=== PATIENT | female | born 1970 | race Asian ===

== ENCOUNTER 2016-10-17 06:53 | Emergency (ER) | payer OTHER ==
[2016-10-17 07:04] VITALS: BP 137/88
[2016-10-17] MEDS ORDERED: PHENAZOPYRIDINE 100 MG TABLET PO STA (07:21)
--- NOTE | 2016-10-17 07:21 | ED Physician Documentation ---
PD HPI FEMALE - Stated complaint Stated Complaint: FEMALE - Chief complaint Chief Complaint: UTI - History obtained from History obtained from: Patient - History of Present Illness Timing - onset: Last night Timing - duration: Days (1) Timing - details: Gradual onset, Still present Associated symptoms: Dysuria, Urinary frequency, Hematuria. No: Vaginal discharge, Genital sore/lesion Contributing factors: No: , Exposed to STD Similar symptoms before: Diagnosis (UTI in past) Recently seen: Not recently seen Review of Systems Constitutional: reports: Chills. denies: Fever GI: reports: Abdominal Pain (suprapubic). denies: Nausea, Vomiting, Diarrhea Skin: denies: Rash, Lesions Musculoskeletal: denies: Back pain PD PAST MEDICAL HISTORY - Past Medical History Cardiovascular: None Respiratory: None Neuro: None Endocrine/Autoimmune: None GI: None : None HEENT: Other Psych: None Musculoskeletal: None Derm: None Other Past Medical History: The patient was admitted for sepsis July 2015. - Past Surgical History Past Surgical History: Yes Neuro: Other - Present Medications Home Medications: Ambulatory Orders Medication Instructions Recorded Confirmed Cholecalciferol (Vitamin D3) 5,000 units PO DAILY 07/20/15 10/17/16 [Vitamin D] Gabapentin 300 mg PO TID 07/20/15 10/17/16 Fluticasone [Flonase] 1 sprays ADINA BID 07/21/15 10/17/16 Phenazopyridine [Pyridium] 200 mg PO TID PRN #15 tablet 10/17/16 Sulfamethox/Trimeth 800/160 1 each PO BID #14 tablet 10/17/16 [Bactrim Ds 800/160] - Allergies Allergies/Adverse Reactions: Allergies Allergy/AdvReac Type Severity Reaction Status Date / Time No Known Drug Allergies Allergy Verified 07/20/15 23:44 - Social History Does the pt smoke?: No Smoking Status: Never smoker Does the pt drink ETOH?: No Does the pt have substance abuse?: No - Immunizations Immunizations are current?: No PD ED PE NORMAL - Vitals Vital signs reviewed: Yes - General General: Alert and oriented X 3, No acute distress, Well developed/nourished - Abdomen Abdomen: Normal bowel sounds, Soft, Non distended, No organomegaly, Other (mild tender suprapubic area without guarding. ) - Female Female : Deferred - Rectal Rectal: Deferred - Back Back: No CVA TTP - Derm Derm: Normal color, Warm and dry Results - Vitals Vitals: Vital Signs - 24 hr 10/17/16 06:58 Temperature 36.6 C Heart Rate 88 Respiratory 14 Rate Blood Pressure 137/88 H O2 Saturation 100 Oxygen O2 Source Room air - Labs Labs: Laboratory Tests 10/17/16 10/17/16 07:11 07:11 Urine Color RED/BLOODY Urine Clarity BLOODY Urine pH 6.0 Ur Specific [place] <=1.005 <1.005 Urine Protein 100 H Urine Glucose (UA) NEGATIVE Urine Ketones NEGATIVE Urine Occult Blood LARGE H Urine Nitrite NEGATIVE Urine Bilirubin NEGATIVE Urine Urobilinogen 0.2 (NORMAL) Ur Leukocyte Esterase MODERATE H Urine RBC TNTC H Urine WBC 6-10 H Ur Squamous Epith Cells NONE SEEN Urine Bacteria None Seen Ur Microscopic Review INDICATED Urine Culture Comments INDICATED Urine HCG, Qual NEGATIVE PD MEDICAL DECISION MAKING - ED course Complexity details: reviewed results (c/w early UTI), considered differential, d /w patient Departure - Departure Disposition: Home, Self Care Clinical Impression: Urinary tract infection Qualifiers: Urinary tract infection type: acute cystitis Hematuria presence: with hematuria Qualified Code(s): N30.01 - Acute cystitis with hematuria Condition: Stable Record reviewed to determine appropriate education?: Yes Instructions: ED UTI Cystitis Female Follow-Up: Shellie Kat PA-C [Primary Care Provider] - Prescriptions: Sulfamethox/Trimeth 800/160 [Bactrim Ds 800/160] 1 each PO BID #14 tablet Phenazopyridine [Pyridium] 200 mg PO TID PRN #15 tablet PRN Reason: Pain Comments: Drink lots of fluids. The urine test does show bladder infection and some bleeding with that is fairly common. Phenazopyridine three times daily to help with the discomfort. Tylenol or Ibuprofen as needed for pains. Bactrim antibiotic twice daily as directed for the infection. Recheck if not improved over the next couple of days. Forms: Activity restrictions Discharge Date/Time: 10/17/16 08:05
[2016-10-17] MEDS ORDERED: PHENAZOPYRIDINE 100 MG TABLET PO ONE (07:31)
[2016-10-17 07:45] LABS: BILIRUBIN,URINE NEGATIVE (NEGATIVE)
[2016-10-17 07:47] LABS: UA w/ MICROSCOPIC CHARGE YES
[2016-10-17 07:48] LABS: HCG UR QUAL NEGATIVE
[2016-10-17] MEDS ORDERED: SULFAMETH/TRIMETH DS 800/160 MG TABLET PO STA (07:58)
[2016-10-17 08:00] LABS: UR CULTURE IF IND INDICATED
[2016-10-17] MEDS ORDERED: SULFAMETH/TRIMETH DS 800/160 MG TABLET PO ONE (08:01)
== END 2016-10-17 08:05 | disposition home or self-care (01) ==
LOC: ED 06:53
DX: N30.01 Acute cystitis with hematuria (principal)
CPT/HCPCS: 81001; 81025; 87086; 99283; A9270; 81003

== ENCOUNTER 2017-04-16 08:23 | Outpatient (CLI) | payer OTHER ==
[2017-04-16 09:16] LABS: BASOPHILS % (AUTO) 0.4 %; EOSINOPHILS # (AUTO) 0.5 10^3/uL (0.0-0.7); EOSINOPHILS % (AUTO) 8.7 %; HCT - HEMATOCRIT 45.3 % (37.0-47.0); HGB - HEMOGLOBIN 15.4 g/dL (12.0-16.0); LYMPHOCYTES # (AUTO) 1.8 10^3/uL (1.5-3.5); LYMPHOCYTES % (AUTO) 30.8 %; MEAN CORPUSCULAR HEMOGLOBIN 30.1 pg (27.0-31.0); MEAN CORPUSCULAR VOLUME 88.6 fL (81.0-99.0); MEAN PLATELET VOLUME 7.9 fL (7.9-10.8); MONOCYTES # (AUTO) 0.5 10^3/uL (0.0-1.0); MONOCYTES % (AUTO) 8.2 %; NEUTROPHILS # (AUTO) 3.1 10^3/uL (1.5-6.6); NEUTROPHILS % (AUTO) 51.9 %; NUCLEATED RED BLOOD CELLS AUTO 0.1 /100WBC; RED BLOOD COUNT 5.12 10^6/uL (4.20-5.40); RED CELL DISTRIBUTION WIDTH 13.2 % (12.0-15.0); UNCORRECTED WHITE BLOOD COUNT 5.9 x10^3/uL; WHITE BLOOD COUNT 5.9 x10^3/uL (4.8-10.8)
[2017-04-16 09:30] LABS: ALBUMIN/GLOBULIN RATIO 1.2 (1.0-2.2); BILIRUBIN,TOTAL 0.9 mg/dL (0.2-1.0); BUN - BLOOD UREA NITROGEN 18 mg/dL (6-20); CALCIUM 9.3 mg/dL (8.5-10.3); CARBON DIOXIDE - CO2 28 mmol/L (21-32); CHLORIDE 104 mmol/L (101-111); CHOL/HDL RATIO 4.3 (<4.4); CHOLESTEROL 194 mg/dL; GFR - MDRD 60 (>89); GLUCOSE 108 mg/dL (70-100); HDL CHOLESTEROL 45 mg/dL; LDL/HDL RATIO 2.5 (<4.4); POTASSIUM 4.2 mmol/L (3.5-5.0); SODIUM 141 mmol/L (135-145); TOTAL PROTEIN 7.4 g/dL (6.7-8.2); TRIGLYCERIDES 174 mg/dL; VLDL CHOLESTEROL 35 mg/dL
== END 2017-04-16 08:24 | disposition home or self-care (01) ==
LOC: LAB 08:23
PROVIDERS: ATTEND Family Medicine
DX: Z00.00 Encounter for general adult medical examination without abnormal findings (principal)
CPT/HCPCS: 80053; 80061; 84443; 85025

== ENCOUNTER 2017-12-30 10:06 | Outpatient (CLI) | payer OTHER ==
[2017-12-30 12:46] LABS: BASOPHILS % (AUTO) 0.5 %; EOSINOPHILS # (AUTO) 0.8 10^3/uL (0.0-0.7); EOSINOPHILS % (AUTO) 9.2 %; HGB - HEMOGLOBIN 14.5 g/dL (12.0-16.0); LYMPHOCYTES # (AUTO) 1.9 10^3/uL (1.5-3.5); LYMPHOCYTES % (AUTO) 21.8 %; MEAN CORPUSCULAR HEMOGLOBIN 30.2 pg (27.0-31.0); MEAN CORPUSCULAR HGB CONC 33.5 g/dL (32.0-36.0); MEAN PLATELET VOLUME 8.2 fL (7.9-10.8); MONOCYTES # (AUTO) 1.1 10^3/uL (0.0-1.0); NEUTROPHILS # (AUTO) 4.8 10^3/uL (1.5-6.6); NEUTROPHILS % (AUTO) 55.5 %; PLT - PLATELET COUNT 238 10^3/uL (130-450); RED CELL DISTRIBUTION WIDTH 12.9 % (12.0-15.0); WHITE BLOOD COUNT 8.6 x10^3/uL (4.8-10.8)
[2017-12-30 13:13] LABS: ALBUMIN 3.7 g/dL (3.2-5.5); BILIRUBIN,TOTAL 0.6 mg/dL (0.2-1.0); CALCIUM 9.3 mg/dL (8.5-10.3); CREATININE 1.1 mg/dL (0.4-1.0); TOTAL PROTEIN 7.5 g/dL (6.7-8.2)
== END 2017-12-30 10:07 | disposition home or self-care (01) ==
LOC: LAB.WCP 10:06
PROVIDERS: ATTEND Family Medicine
DX: K52.9 Noninfective gastroenteritis and colitis, unspecified (principal)
CPT/HCPCS: 36415; 80053; 82150; 83690; 85025

== ENCOUNTER 2019-02-18 08:24 | Outpatient (CLI) | payer OTHER ==
--- NOTE | 2019-02-20 14:41 | Ultrasound Report ---
Reason: SUPRACLAVICULAR LYMPHADENOPATHY Procedure Date: 02/18/2019 Accession Number: [id number] / [id number] Procedure: US - Head or Neck Soft Tissue CPT Code: FULL RESULT: EXAM: NECK ULTRASOUND EXAM DATE: 02/18/2019 08:58 AM. CLINICAL HISTORY: Left SUPRACLAVICULAR LYMPHADENOPATHY. COMPARISON: None. TECHNIQUE: Real-time sonographic imaging was performed by the beam sealer utilizing color-flow. Multiple customer response representative static images were saved for review. FINDINGS: Left supraclavicular region scanned. Images labeled incorrectly labeled right, this was verified by technologist. In the palpable region there is a 3 x 3 x 3 mm fluid collection. IMPRESSION: 3 mm fluid collection at the left supraclavicular palpable region RADIA
== END 2019-02-18 08:25 | disposition home or self-care (01) ==
LOC: DI 08:24
PROVIDERS: ATTEND Family Medicine
DX: R59.0 Localized enlarged lymph nodes (principal)
CPT/HCPCS: 76536

== ENCOUNTER 2019-12-07 09:14 | Outpatient (CLI) | payer OTHER | END 2019-12-07 09:15 | disposition home or self-care (01) | LOC: COV 09:14 | PROVIDERS: ATTEND Family Medicine | DX: Z20.828 Contact with and (suspected) exposure to other viral communicable diseases (principal) ==

== ENCOUNTER 2020-08-25 16:49 | Outpatient (CLI) | payer OTHER ==
[2020-08-25 21:15] LABS: BASOPHILS % (AUTO) 0.6 %; EOSINOPHILS # (AUTO) 0.2 10^3/uL (0.0-0.7); EOSINOPHILS % (AUTO) 3.5 %; HCT - HEMATOCRIT 46.8 % (37.0-47.0); HGB - HEMOGLOBIN 14.8 g/dL (12.0-16.0); LYMPHOCYTES # (AUTO) 2.5 10^3/uL (1.5-3.5); LYMPHOCYTES % (AUTO) 36.4 %; MEAN CORPUSCULAR HEMOGLOBIN 29.1 pg (27.0-31.0); MEAN CORPUSCULAR HGB CONC 31.6 g/dL (32.0-36.0); MEAN CORPUSCULAR VOLUME 92.1 fL (81.0-99.0); MEAN PLATELET VOLUME 10.7 fL (7.9-10.8); MONOCYTES # (AUTO) 0.5 10^3/uL (0.0-1.0); MONOCYTES % (AUTO) 7.4 %; NEUTROPHILS # (AUTO) 3.5 10^3/uL (1.5-6.6); PLT - PLATELET COUNT 209 10^3/uL (130-450); RED BLOOD COUNT 5.08 10^6/uL (4.20-5.40); RED CELL DISTRIBUTION WIDTH 12.4 % (12.0-15.0); WHITE BLOOD COUNT 6.8 x10^3/uL (4.8-10.8)
[2020-08-25 21:29] LABS: ALBUMIN 4.1 g/dL (3.2-5.5); ALBUMIN/GLOBULIN RATIO 1.2 (1.0-2.2); ALKALINE PHOSPHATASE 69 IU/L (42-121); ALT ALANINE AMINOTRANSFERASE 21 IU/L (10-60); AST ASPARTATE AMINOTRANSFERASE 22 IU/L (10-42); BILIRUBIN,TOTAL 0.5 mg/dL (0.2-1.0); BUN - BLOOD UREA NITROGEN 25 mg/dL (6-20); CALCIUM 9.9 mg/dL (8.5-10.3); CARBON DIOXIDE - CO2 29 mmol/L (21-32); CHLORIDE 103 mmol/L (101-111); CHOL/HDL RATIO 3.7 (<4.4); CHOLESTEROL 200 mg/dL; CREATININE 1.1 mg/dL (0.4-1.0); GFR - MDRD 53 (>89); GLUCOSE 98 mg/dL (70-100); HDL CHOLESTEROL 54 mg/dL; LDL CHOLESTEROL,CALCULATED 119 mg/dL; LDL/HDL RATIO 2.2 (<4.4); POTASSIUM 3.6 mmol/L (3.5-5.0); SODIUM 140 mmol/L (135-145); TOTAL PROTEIN 7.5 g/dL (6.7-8.2); TRIGLYCERIDES 134 mg/dL; VLDL CHOLESTEROL 27 mg/dL
[2020-08-25 21:40] LABS: THYROID STIMULATING HORMONE 2.5 uIU/mL (0.34-5.60)
== END 2020-08-25 16:50 | disposition home or self-care (01) ==
LOC: LAB.N 16:49
PROVIDERS: ATTEND Family Medicine
DX: Z00.00 Encounter for general adult medical examination without abnormal findings (principal)
CPT/HCPCS: 36415; 80053; 80061; 83721; 84443; 85025

== ENCOUNTER 2020-09-26 07:00 | Outpatient (CLI) | payer OTHER, MEDICAID | END 2020-09-26 23:59 | disposition home or self-care (01) | LOC: LAB.N 07:00 | PROVIDERS: ATTEND Family Medicine | DX: R32 Unspecified urinary incontinence (principal) | CPT/HCPCS: 87086; 87181 ==

== ENCOUNTER 2022-06-16 18:25 | Outpatient (CLI) | payer OTHER, MEDICAID ==
[2022-06-16 20:54] LABS: BASOPHILS % (AUTO) 0.5 %; EOSINOPHILS # (AUTO) 0.4 10^3/uL (0.0-0.7); EOSINOPHILS % (AUTO) 6.7 %; HCT - HEMATOCRIT 44.2 % (37.0-47.0); HGB - HEMOGLOBIN 13.9 g/dL (12.0-16.0); LYMPHOCYTES # (AUTO) 1.6 10^3/uL (1.5-3.5); LYMPHOCYTES % (AUTO) 26.3 %; MEAN CORPUSCULAR HEMOGLOBIN 28.2 pg (27.0-31.0); MEAN CORPUSCULAR HGB CONC 31.4 g/dL (32.0-36.0); MEAN CORPUSCULAR VOLUME 89.7 fL (81.0-99.0); MEAN PLATELET VOLUME 10.1 fL (7.9-10.8); MONOCYTES # (AUTO) 0.6 10^3/uL (0.0-1.0); MONOCYTES % (AUTO) 10.1 %; NEUTROPHILS # (AUTO) 3.4 10^3/uL (1.5-6.6); NEUTROPHILS % (AUTO) 56.1 %; PLT - PLATELET COUNT 228 10^3/uL (130-450); RED BLOOD COUNT 4.93 10^6/uL (4.20-5.40); RED CELL DISTRIBUTION WIDTH 12.8 % (12.0-15.0); WHITE BLOOD COUNT 6.1 x10^3/uL (4.8-10.8)
[2022-06-16 21:13] LABS: ALBUMIN 4.1 g/dL (3.2-5.5); ALBUMIN/GLOBULIN RATIO 1.1 (1.0-2.2); BILIRUBIN,TOTAL 0.5 mg/dL (0.2-1.0); CALCIUM 9.2 mg/dL (8.5-10.3); CREATININE 1.5 mg/dL (0.4-1.0); POTASSIUM 4.1 mmol/L (3.5-5.0); TOTAL PROTEIN 7.9 g/dL (6.7-8.2)
== END 2022-06-16 23:59 | disposition home or self-care (01) ==
LOC: LAB.N 18:25
PROVIDERS: ATTEND Registered Nurse
DX: N95.0 Postmenopausal bleeding (principal)
CPT/HCPCS: 36415; 80053; 82728; 83540; 84466; 85025

== ENCOUNTER 2022-07-09 19:00 | Outpatient (CLI) | payer OTHER, MEDICAID ==
--- NOTE | 2022-07-09 20:30 | Ultrasound Report ---
PROCEDURE: Pelvic w/Transvaginal INDICATIONS: POST MENOPAUSAL BLEEDING TECHNIQUE: Real-time scanning was performed of the pelvic organs, with image documentation. Additional endovagi nal scanning was necessary due to incomplete visualization of the adnexal and endometrial structures by transabdominal scanning. COMPARISON: None. FINDINGS: Uterus: Uterus is anteverted and normal in size at 8.0 x 4.6 x 5.1 cm. The myometrium is heterogene ous. The endometrium measures 11.6 mm in combined thickness. The endometrium is thickened and lobul ated and has flow within it. Ovaries: The right ovary is not visualized, possibly secondary to overlying bowel gas The left ovary measures 1.7 x 1.3 x 2.1 cm, with a calculated ovarian volume of 2.4 cc. No adnexal masses noted. Other: No pathologic free abdominal or pelvic fluid. IMPRESSION: Thickened lobulated endometrium with flow within it. Findings may potentially represent endometrial carcinoma. Comment: Recommend OUTSIDE [employer] referral. Reviewed by: Bruce Mchugh MD on 07/09/2022 8:29 PM PST Approved by: Bruce Mchugh MD on 07/09/2022 8:29 PM PST Station ID: [id number]
== END 2022-07-09 23:59 | disposition home or self-care (01) ==
LOC: DI 19:00
PROVIDERS: ATTEND Registered Nurse
DX: R93.89 Abnormal findings on diagnostic imaging of other specified body structures (principal)

== ENCOUNTER 2022-07-10 09:23 | Outpatient (CLI) | payer OTHER, MEDICAID ==
[2022-07-10 18:57] LABS: BASOPHILS % (AUTO) 0.6 %; EOSINOPHILS # (AUTO) 0.4 10^3/uL (0.0-0.7); EOSINOPHILS % (AUTO) 6.9 %; HCT - HEMATOCRIT 46.8 % (37.0-47.0); HGB - HEMOGLOBIN 14.5 g/dL (12.0-16.0); LYMPHOCYTES # (AUTO) 1.9 10^3/uL (1.5-3.5); LYMPHOCYTES % (AUTO) 29.8 %; MEAN CORPUSCULAR HEMOGLOBIN 28.2 pg (27.0-31.0); MEAN CORPUSCULAR VOLUME 91.1 fL (81.0-99.0); MEAN PLATELET VOLUME 10.4 fL (7.9-10.8); MONOCYTES # (AUTO) 0.5 10^3/uL (0.0-1.0); MONOCYTES % (AUTO) 7.9 %; NEUTROPHILS # (AUTO) 3.4 10^3/uL (1.5-6.6); NEUTROPHILS % (AUTO) 54.6 %; PLT - PLATELET COUNT 226 10^3/uL (130-450); RED BLOOD COUNT 5.14 10^6/uL (4.20-5.40); RED CELL DISTRIBUTION WIDTH 13.2 % (12.0-15.0); WHITE BLOOD COUNT 6.2 x10^3/uL (4.8-10.8)
[2022-07-10 19:15] LABS: CREATININE,URINE 124.1 mg/dL; PROTEIN/CREATININE RATIO,URINE 0.1 (<=0.2)
[2022-07-10 19:19] LABS: CHOL/HDL RATIO 4.5 (<4.4); CHOLESTEROL 209 mg/dL; HDL CHOLESTEROL 46 mg/dL; LDL CHOLESTEROL,CALCULATED 142 mg/dL; LDL/HDL RATIO 3.1 (<4.4); TRIGLYCERIDES 106 mg/dL; VLDL CHOLESTEROL 21 mg/dL
[2022-07-10 19:21] LABS: ALBUMIN 4.1 g/dL (3.2-5.5); ALBUMIN/GLOBULIN RATIO 1.2 (1.0-2.2); BILIRUBIN,TOTAL 1.1 mg/dL (0.2-1.0); CALCIUM 9.6 mg/dL (8.5-10.3); CREATININE 1.3 mg/dL (0.4-1.0); POTASSIUM 4.1 mmol/L (3.5-5.0); TOTAL PROTEIN 7.6 g/dL (6.7-8.2)
[2022-07-10 19:26] LABS: THYROID STIMULATING HORMONE 0.86 uIU/mL (0.34-5.60)
[2022-07-10 19:55] LABS: FOLLICLE STIMULATING HORMONE 28.27 mIU/mL
== END 2022-07-10 09:24 | disposition home or self-care (01) ==
LOC: LAB.N 09:23
PROVIDERS: ATTEND Physician Assistant
DX: E55.9 Vitamin D deficiency, unspecified (principal); N17.9 Acute kidney failure, unspecified; E78.6 Lipoprotein deficiency; N93.9 Abnormal uterine and vaginal bleeding, unspecified; Z13.29 Encounter for screening for other suspected endocrine disorder
CPT/HCPCS: 36415; 80053; 80061; 82306; 82570; 83001; 83721; 84156; 84300; 84443; 85025

== ENCOUNTER 2022-07-20 18:13 | Outpatient (CLI) | payer OTHER, MEDICAID | END 2022-07-20 18:14 | disposition home or self-care (01) | LOC: LAB 18:13 | PROVIDERS: ATTEND Obstetrics & Gynecology | DX: C55 Malignant neoplasm of uterus, part unspecified (principal) | CPT/HCPCS: 36415; 86304 ==

== ENCOUNTER 2022-08-02 18:22 | Outpatient (CLI) | payer OTHER, MEDICAID ==
--- NOTE | 2022-08-03 10:54 | Ultrasound Report ---
PROCEDURE: Retroperitoneal INDICATIONS: ACUTE NONTRAUMATIC KIDNEY INJURY TECHNIQUE: Real-time scanning was performed of the retroperitoneal organs, with image documentation. COMPARISON: None. FINDINGS: Kidneys: Kidneys are normal in size. Right kidney measures 10 cm long; left kidney measures 9.8 cm long. Right renal cortical thickness is 1 cm; left renal cortical thickness is 1.1 cm. No solid mas ses, hydronephrosis, or nephrolithiasis. Left-sided renal sinus cysts, benign. Bladder: Pre-void bladder volume is 532 mL. Post-void residual is 15 mL. Pre-void images demonstra te no intraluminal masses or stones. On pre-void images, both ureteral jets are noted with color Dop pler interrogation. (Of note, ureteral jets may not be detectable in up to 25% of cases due to insuf ficient differences in specific gravity between ureteral and bladder urine). Miscellaneous: No free abdominal fluid. IMPRESSION: Normal renal ultrasound. Reviewed by: Royce Zheng on 08/03/2022 10:53 AM PDT Approved by: Royce Zheng on 08/03/2022 10:53 AM PDT Station ID: [id number]
== END 2022-08-02 18:23 | disposition home or self-care (01) ==
LOC: DI 18:22
PROVIDERS: ATTEND Physician Assistant
DX: N17.9 Acute kidney failure, unspecified (principal)

== ENCOUNTER 2022-08-06 14:36 | Outpatient (CLI) | payer OTHER, MEDICAID ==
[2022-08-06] MEDS ORDERED: DIATR MEGLU/DIATRIZOATE SODIUM 120 ML BOTTLE ONE (15:32)
[2022-08-06] MEDS ORDERED: iohexoL-300 100 ML VIAL ONE (15:32)
--- NOTE | 2022-08-06 16:31 | CT Report ---
PROCEDURE: ABDOMEN/PELVIS W INDICATIONS: UTERINE CA CONTRAST: : 100ml omni 300 TECHNIQUE: After the administration of oral and intravenous contrast, 5 mm thick sections acquired from the diap hragms to the symphysis. 5 mm thick coronal and sagittal reformats were acquired. For radiation dos e reduction, the following was used: automated exposure control, adjustment of mA and/or kV accordin g to patient size. COMPARISON: CT 07/21/2015, ultrasound 07/09/2022. FINDINGS: Lung bases and heart: Unremarkable. Liver: Fluid attenuating liver cyst at the dome. Gallbladder and biliary tree: Cholelithasis without wall thickening. Bile ducts measure within normal limits. Spleen: Unremarkable. Pancreas: Unremarkable. Adrenals: No nodules. Kidneys: lobulation. No complex renal cystic lesions which require follow-up. Bowel and peritoneum: No bowel distension. No pathologic free fluid. Lymph nodes: No central or retroperitoneal adenopathy. Vessels: No aortic aneurysm. PELVIS Reproductive organs: Similar thickening of the endometrium. No adnexal mass.. Bladder and ureters: Unremarkable. Lymph nodes: No pelvic adenopathy. Bones: No aggressive osseous abnormality. Other: None IMPRESSION: 1.Similar thickening of the endometrium. No evidence of yolanda disease or metastatic disease. 2.Cholelithiasis without evidence of acute cholecystitis. Reviewed by: Royce Zheng on 08/06/2022 4:30 PM PDT Approved by: Royce Zheng on 08/06/2022 4:30 PM PDT Station ID: [id number]
[2022-08-06] MEDS ORDERED: iohexoL-300 100 ML VIAL IVP ONE (17:34)
[2022-08-06] MEDS ORDERED: DIATRIZOATE MEGLU/DIATRIZO SOD 30 ML BOTTLE PO ONE (17:34)
== END 2022-08-06 14:37 | disposition home or self-care (01) ==
LOC: DI 14:36
PROVIDERS: ATTEND Obstetrics & Gynecology
DX: C55 Malignant neoplasm of uterus, part unspecified (principal); R93.89 Abnormal findings on diagnostic imaging of other specified body structures; K80.20 Calculus of gallbladder without cholecystitis without obstruction
CPT/HCPCS: 74177; Q9963; Q9967

== ENCOUNTER 2022-08-10 16:46 | Emergency (ER) | payer OTHER, MEDICAID ==
[2022-08-10 16:54] VITALS: BP 133/98
[2022-08-10] MEDS ORDERED: ERYTHROMYCIN OPHTH OINT 1 GM TUBE LEFTEYE STA (17:04)
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
[2022-08-10] MEDS ORDERED: OFLOXACIN 0.3% OPHTH DROPS LEFTEYE STA (17:07)
== END 2022-08-10 17:25 | disposition home or self-care (01) ==
LOC: ED 16:46
DX: S05.8X2A Other injuries of left eye and orbit, initial encounter (principal); X58.XXXA Exposure to other specified factors, initial encounter
CPT/HCPCS: 99282; 99284; A9270; J3490

== ENCOUNTER 2022-10-11 08:00 | Outpatient (CLI) | payer OTHER, MEDICAID | END 2022-10-11 23:59 | disposition home or self-care (01) | LOC: LAB.N 08:00 | PROVIDERS: ATTEND Physician Assistant Medical | DX: R30.0 Dysuria (principal) | CPT/HCPCS: 87086 ==

== ENCOUNTER 2023-02-17 08:00 | Outpatient (CLI) | payer OTHER, MEDICAID | END 2023-02-17 23:59 | disposition home or self-care (01) | LOC: LAB 08:00 | PROVIDERS: ATTEND Nurse Practitioner | DX: N39.0 Urinary tract infection, site not specified (principal) | CPT/HCPCS: 87086 ==

== ENCOUNTER 2023-02-26 10:45 | Outpatient (CLI) | payer OTHER, MEDICAID ==
[2023-02-26 19:01] LABS: BASOPHILS % (AUTO) 0.9 %; EOSINOPHILS % (AUTO) 5.7 %; HCT - HEMATOCRIT 47.9 % (37.0-47.0); LYMPHOCYTES % (AUTO) 44.2 %; MEAN CORPUSCULAR HEMOGLOBIN 28.7 pg (27.0-31.0); MEAN CORPUSCULAR HGB CONC 31.3 g/dL (32.0-36.0); MEAN CORPUSCULAR VOLUME 91.8 fL (81.0-99.0); MEAN PLATELET VOLUME 11.4 fL (7.9-10.8); MONOCYTES % (AUTO) 10.6 %; NEUTROPHILS % (AUTO) 38.4 %; PLT - PLATELET COUNT 210 10^3/uL (130-450); RED BLOOD COUNT 5.22 10^6/uL (4.20-5.40); RED CELL DISTRIBUTION WIDTH 12.6 % (12.0-15.0); WHITE BLOOD COUNT 4.2 x10^3/uL (4.8-10.8)
[2023-02-26 19:09] LABS: ABNORMAL LYMPHS % (MANUAL) 0 %
[2023-02-26 19:29] LABS: ALBUMIN 4.4 g/dL (3.2-5.5); ALBUMIN/GLOBULIN RATIO 1.6 (1.0-2.2); BILIRUBIN,TOTAL 0.4 mg/dL (0.2-1.0); CALCIUM 9.6 mg/dL (8.5-10.3); CREATININE 1.1 mg/dL (0.6-1.3); POTASSIUM 3.9 mmol/L (3.5-4.5); TOTAL PROTEIN 7.2 g/dL (6.4-8.9)
[2023-02-26 19:38] LABS: THYROID STIMULATING HORMONE 1.64 uIU/mL (0.34-5.60)
[2023-02-26 19:41] LABS: BAND NEUTROPHILS % (MANUAL) 2 %; DIFFERENTIAL COMMENT MANUAL DIFFERENTIAL; EOSINOPHILS # (MANUAL) 0.2 10^3/uL (0-0.7); LYMPHOCYTES # (MANUAL) 1.8 10^3/uL (1.5-3.5); LYMPHOCYTES % (MANUAL) 38 %; MONOCYTES # (MANUAL) 0.3 10^3/uL (0.0-1.0); NEUTROPHILS # (MANUAL) 1.9 10^3/uL (1.5-6.6); PLATELET ESTIMATE, MANUAL NORMAL (130-450,000) (NORMAL); PLATELET MORPHOLOGY NORMAL APPEARANCE (NORMAL); RBC MORPHOLOGY (MULTIPLE) NORMAL APPEARANCE (NORMAL); REACTIVE LYMPHS % (MANUAL) 6 %
== END 2023-02-26 11:00 | disposition home or self-care (01) ==
LOC: LAB.N 10:45
PROVIDERS: ATTEND Physician Assistant Medical
DX: R53.83 Other fatigue (principal)
CPT/HCPCS: 36415; 80053; 83690; 84443; 85025; 87086

== ENCOUNTER 2023-04-08 13:47 | Outpatient (CLI) | payer OTHER, MEDICAID ==
--- NOTE | 2023-04-12 13:07 | Mammography Report ---
BILATERAL DIGITAL SCREENING MAMMOGRAM 3D/2D WITH EXAGGERATED CC: 04/08/2023 CLINICAL: Routine screening. Comparison is made to exams dated: 06/04/2015 mammogram and 09/14/2013 mammogram - [facility]. Both breasts are heterogeneously dense, which may obscure small masses (category c / 51-75% glandular tissue). No significant masses, calcifications, or other findings are seen in either breast. There has been no significant interval change. IMPRESSION: NEGATIVE There is no mammographic evidence of malignancy. A 1 year screening mammogram is recommended. Based on the Tyrer Cuzick model (a risk assessment model) the patients lifetime risk is 11.0% and he r 10 year risk is 2.8%. According to the ACR, ACS, and NCCN guidelines, an annual breast MRI exam ember ng with mammogram is recommended if the patients lifetime risk is 20% or greater. This exam was interpreted at Station ID: [id number]. NOTE: For mammograms, a report in lay terms will be sent to the patient. Approximately 15% of breast malignancies will not be visualized mammographically. In the management of a palpable breast mass, a negative mammogram must not discourage biopsy of a clinically suspicious lesion. Electronically Signed By: Roberto mendoza/albert:04/11/2023 11:37:37 letter sent: No_Letter ACR BI-RADS Category 1: Negative 3341F PARENCHYMAL PATTERN: (D) - The breast(s) demonstrate(s) heterogeneously dense fibroglandular lamin peter. BI-RADS CATEGORY: (1) - 1 Mammogram [id number] 1 year screening LATERALITY: (B)
== END 2023-04-08 13:48 | disposition home or self-care (01) ==
LOC: DI 13:47
PROVIDERS: ATTEND Physician Assistant
DX: Z12.31 Encounter for screening mammogram for malignant neoplasm of breast (principal); R92.333 Mammographic heterogeneous density, bilateral breasts

== ENCOUNTER 2023-05-20 16:46 | Outpatient (CLI) | payer OTHER, MEDICAID | END 2023-05-20 16:47 | disposition home or self-care (01) | LOC: LAB.N 16:46 | PROVIDERS: ATTEND Physician Assistant | DX: H16.9 Unspecified keratitis (principal) | CPT/HCPCS: 36415; 86695; 86696 ==

== ENCOUNTER 2023-07-08 09:02 | Day surgery (SDC) | payer OTHER, MEDICAID ==
[2023-07-08] MEDS: LACTATED RINGERS 1,000 ML IV ONE ×2 (09:05→10:50)
[2023-07-08] MEDS ORDERED: PROPOFOL 500 MG/50 ML 500 MG/50 ML VIAL ONE (09:51)
--- NOTE | 2023-07-08 09:53 | ANESTHESIA ---
Pre-Anesthesia VS, & Labs - Diagnosis screening - Procedure colonoscopy Vital Signs: Temp Pulse Resp BP Pulse Ox O2 Flow Rate 36.4 C L 57 L 16 130/77 100 07/08/23 09:05 07/08/23 09:05 07/08/23 09:05 07/08/23 09:05 07/08/23 09:05 Height: 5 ft 3 in Weight (kg): 67.4 kg Body Mass Index: 26.3 BMI Classification: Overweight - NPO >8 hours Last Fluid Intake: am prep - Is Patient ?: No - Lab Results Lab results reviewed: Yes Home Medications and Allergies Cholecalciferol (Vitamin D3) [Vitamin D] 5,000 units PO DAILY 07/20/15 Gabapentin 300 mg PO TID 07/20/15 Allergies/Adverse Reactions: Allergies Allergy/AdvReac Type Severity Reaction Status Date / Time No Known Drug Allergies Allergy Verified 08/10/22 16:54 Anes History & Medical History - Anesthetic History Anesthesia Complications: reports: No previous complications Family history of Anesthesia Complications: Denies Family history of Malignant Hyperthermia: Denies - Medical History Cardiovascular: reports: None Pulmonary: reports: None Gastrointestinal: reports: None Urinary: reports: None Neuro: reports: Other (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) Musculoskeletal: reports: None Endocrine/Autoimmune: reports: None Blood Disorders: reports: None Skin: reports: None Smoking Status: Never smoker Psychosocial: reports: No issues indicated History of Cancer?: No - Surgical History Gynecologic: reports: section, Hysterectomy Neurologic: reports: Other Exam General: Alert, Oriented x3, Cooperative Dental: WNL Mouth Openin Fingerbreadth Neck Mobility: Normal Mallampati classification: III Thyromental Distance: 4-6 cm Respiratory: Lungs clear, Normal breath sounds, No respiratory distress Cardiovascular: Regular rate Neurological: Normal speech Mental/Cognitive Status: Alert/Oriented X3, Normal for patient Cognitive Status: Within normal limits Plan Anesthesia Type: Total IV Consent for Procedure(s) Verified and Reviewed: Yes Code Status: Attempt Resuscitation ASA classification: 2-Mild systemic disease Is this case an emergency?: No
[2023-07-08] MEDS ORDERED: MIDAZOLAM 2 MG/2 ML VIAL ONE (10:01)
--- NOTE | 2023-07-08 10:16 | HISTORY & PHYSICAL EXAMINATION ---
Chief Complaint - Chief Complaint Chief Complaint: here for colonoscopy History of Present Illness - History Obtained From Records Reviewed: yes History obtained from: pt Exam Limitations: none - History of Present Illness HPI Comment/Other: here for colonoscopy for screening. no gi problems. negative fhx for colon ca. recent labs normal. 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) Endocrine/Autoimmune: reports: None GI: reports: None MANAGER CLEANING: reports: None : reports: None HEENT: reports: Other Psych: reports: None Musculoskeletal: reports: None Derm: reports: None MRSA Hx?: No - Past Surgical History /MANAGER CLEANING: reports: section, Hysterectomy Neuro: reports: Other Meds/Allgy - Home Medications Home Medications: Ambulatory Orders Medication Instructions Recorded Confirmed Cholecalciferol (Vitamin D3) 5,000 units PO DAILY 07/20/15 07/08/23 [Vitamin D] Gabapentin 300 mg PO TID 07/20/15 07/08/23 Ofloxacin 0.3% Ophth Drops 1 drops OPTH Q4H #5 ml 08/10/22 07/08/23 [Ocuflox 0.3% Ophth Drops] - Allergies Allergies/Adverse Reactions: Allergies Allergy/AdvReac Type Severity Reaction Status Date / Time No Known Drug Allergies Allergy Verified 08/10/22 16:54 Review of Systems - Other Findings Other Findings: 10 pt ros as above otherwise unremarkable Exam - Vital Signs Vital Signs: Vital Signs x48h Temp Pulse Resp BP Pulse Ox 07/08/23 09:05 36.4 C L 57 L 16 130/77 100 - Physical Exam General Appearance: positive: Alert Eyes Bilateral: positive: PERRL, No scleral icterus ENT: positive: No signs of dehydration Neck: positive: No JVD, Trachea midline Respiratory: positive: No respiratory distress Cardiovascular: positive: Regular rate & rhythm Abdomen: positive: No distention Neurologic/Psychiatric: positive: Oriented x3 Conclusion/Plan - Problem List (1) Colon cancer screening Conclusion/Plan: plan colonoscopy. parq held and consent obtained - Lab Results Lab results reviewed: Yes
[2023-07-08] MEDS ORDERED: LIDOCAINE-PF 2% 10 ML AMP SUBQ ONE (10:22)
[2023-07-08] MEDS ORDERED: GLYCOPYRROLATE 1 MG/5 ML VIAL ONE (10:26)
--- NOTE | 2023-07-08 11:10 | ANESTHESIA POST OP EVALUATION ---
Anesthesia Post Eval - Post Anesthesia Eval Vitals: Last Vital Signs Temp 36.1 C L 07/08/23 10:50 Pulse 73 07/08/23 10:50 Resp 16 07/08/23 10:50 BP 85/50 L 07/08/23 10:50 Pulse Ox 98 07/08/23 10:50 O2 Flow Rate CV Function Including HR & BP: Stable Pain Control: Satisfactory Nausea & Vomiting: Negative Mental Status: Baseline Respiratory Status: Airway Patent Hydration Status: Satisfactory Anesthesia Complications: None
[2023-07-08 11:25] VITALS: BP 134/80; O2SAT 100
== END 2023-07-08 09:03 | disposition home or self-care (01) ==
LOC: SDS 09:02
PROVIDERS: ATTEND Surgery
PROC: 0DBM8ZZ Excision of Descending Colon, Via Natural or Artificial Opening Endoscopic (ICD-10-PCS; principal; 2023-07-08 10:30)
DX: Z12.11 Encounter for screening for malignant neoplasm of colon (principal); D12.4 Benign neoplasm of descending colon
CPT/HCPCS: 45385; J7120

== ENCOUNTER 2023-09-08 16:30 | Outpatient (CLI) | payer MEDICAID, OTHER | END 2023-09-08 16:45 | disposition home or self-care (01) | LOC: LAB.N 16:30 | PROVIDERS: ATTEND Family Medicine | DX: R30.0 Dysuria (principal) | CPT/HCPCS: 87086 ==

== ENCOUNTER 2023-10-28 12:46 | Outpatient (CLI) | payer OTHER ==
--- NOTE | 2023-10-28 15:53 | Ultrasound Report ---
PROCEDURE: Abdomen Limited INDICATIONS: SUBCUTANEOUS MASS TECHNIQUE: Real-time focused scanning was performed of the abdominal wall, with image documentation. COMPARISONS: CT abdomen and pelvis 08/06/2022. FINDINGS: Right lower abdominal wall palpable abnormality. Suspect a subcutaneous isoechoic mass measuring 1.4 x 1.3 x 1.1 cm. Right upper abdominal wall palpable abnormality demonstrates no mass. No fluid collection. IMPRESSION: Suspect a right lower quadrant abdominal wall lipoma measuring 1.4 cm at the palpable abnormality. No additional mass seen. No fluid collection. Reviewed by: Nhan Hughes MD on 10/28/2023 3:51 PM PDT Approved by: Nhan Hughes MD on 10/28/2023 3:51 PM PDT Station ID: [id number]
== END 2023-10-28 12:47 | disposition home or self-care (01) ==
LOC: DI 12:46
PROVIDERS: ATTEND Physician Assistant
DX: R19.03 Right lower quadrant abdominal swelling, mass and lump (principal)

== ENCOUNTER 2023-12-24 08:18 | Outpatient (CLI) | payer OTHER ==
[2023-12-24 08:32] LABS: BASOPHILS % (AUTO) 0.7 %; EOSINOPHILS # (AUTO) 0.3 10^3/uL (0.0-0.7); EOSINOPHILS % (AUTO) 5.7 %; HCT - HEMATOCRIT 45.7 % (37.0-47.0); HGB - HEMOGLOBIN 14.7 g/dL (12.0-16.0); LYMPHOCYTES % (AUTO) 35.5 %; MEAN CORPUSCULAR HEMOGLOBIN 29.3 pg (27.0-31.0); MEAN CORPUSCULAR HGB CONC 32.2 g/dL (32.0-36.0); MEAN PLATELET VOLUME 9.8 fL (7.9-10.8); MONOCYTES # (AUTO) 0.5 10^3/uL (0.0-1.0); MONOCYTES % (AUTO) 8.1 %; NEUTROPHILS # (AUTO) 2.8 10^3/uL (1.5-6.6); NEUTROPHILS % (AUTO) 49.6 %; PLT - PLATELET COUNT 193 10^3/uL (130-450); RED BLOOD COUNT 5.02 10^6/uL (4.20-5.40); RED CELL DISTRIBUTION WIDTH 12.3 % (12.0-15.0); WHITE BLOOD COUNT 5.7 x10^3/uL (4.8-10.8)
[2023-12-24 08:45] LABS: ALBUMIN 4.2 g/dL (3.2-5.5); ALBUMIN/GLOBULIN RATIO 1.4 (1.0-2.2); ALKALINE PHOSPHATASE 75 IU/L (42-121); ALT ALANINE AMINOTRANSFERASE 15 IU/L (10-60); AST ASPARTATE AMINOTRANSFERASE 17 IU/L (10-42); BILIRUBIN,TOTAL 0.9 mg/dL (0.2-1.0); BUN - BLOOD UREA NITROGEN 26 mg/dL (6-20); CALCIUM 9.7 mg/dL (8.5-10.3); CARBON DIOXIDE - CO2 30 mmol/L (21-32); CHLORIDE 104 mmol/L (101-111); CHOL/HDL RATIO 3.5 (<4.4); CHOLESTEROL 181 mg/dL; CREATININE 1.2 mg/dL (0.6-1.3); GFR - MDRD 47 (>89); GLUCOSE 104 mg/dL (74-104); HDL CHOLESTEROL 51 mg/dL; LDL CHOLESTEROL,CALCULATED 108 mg/dL; LDL/HDL RATIO 2.1 (<4.4); SODIUM 139 mmol/L (135-145); TOTAL PROTEIN 7.3 g/dL (6.4-8.9); TRIGLYCERIDES 112 mg/dL; VLDL CHOLESTEROL 22 mg/dL
[2023-12-24 09:01] LABS: THYROID STIMULATING HORMONE 2.06 uIU/mL (0.34-5.60)
== END 2023-12-24 08:19 | disposition home or self-care (01) ==
LOC: LAB 08:18
PROVIDERS: ATTEND Physician Assistant
DX: Z13.9 Encounter for screening, unspecified (principal)
CPT/HCPCS: 36415; 80053; 80061; 83721; 84443; 85025